=== PATIENT | female | born 1970 | race African-American/Black ===

== ENCOUNTER 2016-05-11 16:45 | Emergency (ER) | payer MEDICAID ==
[~2016-05-11] VITALS: Ht 180.3 cm; Wt 73.5 kg
[2016-05-11 17:29] VITALS: BP 132/78
== END 2016-05-11 17:54 | disposition home or self-care (01) ==
LOC: ER 16:51
DX: G89.29 Other chronic pain (principal); M51.26 Other intervertebral disc displacement, lumbar region

== ENCOUNTER 2017-07-06 16:10 | Emergency (ER) | payer MEDICAID ==
[~2017-07-06] VITALS: Ht 180.3 cm; Wt 76.2 kg
[2017-07-06 19:05] VITALS: BP 131/87
== END 2017-07-06 19:54 | disposition home or self-care (01) ==
LOC: ER 16:13
DX: L02.612 Cutaneous abscess of left foot (principal); L03.032 Cellulitis of left toe; F17.210 Nicotine dependence, cigarettes, uncomplicated; G89.29 Other chronic pain; M54.5 Low back pain